=== PATIENT | male | born 1945 | race African-American/Black ===

== ENCOUNTER 2019-10-17 14:06 | Emergency (ER) | payer MEDICARE, OTHER ==
[2019-10-17 14:47] VITALS: BP 148/78
[2019-10-17] MEDS ORDERED: ACETAMINOPHEN 325 MG TABLET PO ONE ×2 (14:59→18:53)
[2019-10-17] MEDS ORDERED: ACETAMINOPHEN 650 MG SUPP.RECT PR ONE (15:00)
--- NOTE | 2019-10-17 15:02 | ER Document Report ---
ED Medical Screen (RME) - General Chief Complaint: Sore Throat Stated Complaint: SORE THROAT Time Seen by Provider: 10/17/19 14:51 Primary Care Provider: ABDIRAHMAN GALO [Primary Care Provider] - Follow up as needed Mode of Arrival: Ambulatory Information source: Patient Notes: 74-year-old male presents emergency department with complaints of sore throat unable to swallow. He reports he attempted to drink water and it came back up. Tonsillar hypertrophy noted. His at his side reports he is talking funny. Fever noted. Reports he was working at [email or web address] when he started feeling bad. Denies vomiting and diarrhea. I have greeted and performed a rapid initial assessment of this patient. A comprehensive ED assessment and evaluation of the patient, analysis of test results and completion of the medical decision making process will be conducted by additional ED providers. - Related Data Allergies/Adverse Reactions: No Known Allergies Allergy (Verified 10/17/19 14:52) Past Medical History - Past Medical History Cardiac Medical History: Reports: Hx Hypertension - Immunizations Hx Diphtheria, Pertussis, Tetanus Vaccination: No Physical Exam - Vital signs Vitals: Temp Pulse Resp BP Pulse Ox 101.3 F H 91 20 148/78 H 96 10/17/19 14:45 10/17/19 14:45 10/17/19 14:45 10/17/19 14:45 10/17/19 14:45 Course - Vital Signs Vital signs: Temp Pulse Resp BP Pulse Ox 101.3 F H 91 20 148/78 H 96 10/17/19 14:45 10/17/19 14:45 10/17/19 14:45 10/17/19 14:45 10/17/19 14:45 Doctor's Discharge - Discharge Referrals: ABDIRAHMAN GALO [Primary Care Provider] - Follow up as needed
[2019-10-17 15:55] LABS: ABSOLUTE LYMPHOCYTES (AUTO) 0.8 10^3/uL (0.5-4.7); ABSOLUTE MONOCYTES (AUTO) 0.7 10^3/uL (0.1-1.4); ABSOLUTE NEUT (AUTO) 8.2 10^3/uL (1.7-8.2); BASOPHILS % (AUTO) 0.3 % (0-2); EOSINOPHILS % (AUTO) 0.1 % (0-6); HEMATOCRIT 39.7 % (37.9-51.0); HEMOGLOBIN 13.6 g/dL (13.5-17.0); LYMPHOCYTES % (AUTO) 8.1 % (13-45); MEAN CORPUSCULAR HEMOGLOBIN 30.8 pg (27.0-33.4); MEAN CORPUSCULAR HGB CONC 34.3 g/dL (32.0-36.0); MEAN CORPUSCULAR VOLUME 90 fl (80-97); MONOCYTES % (AUTO) 7.3 % (3-13); PLATELET COUNT 127 10^3/uL (150-450); RED BLOOD COUNT 4.42 10^6/uL (4.35-5.55); RED CELL DISTRIBUTION WIDTH 13.6 % (11.5-14.0); SEGMENTED NEUTROPHILS % (AUTO) 84.2 % (42-78); TOTAL CELLS COUNTED % (AUTO) 100 %; WHITE BLOOD COUNT 9.7 10^3/uL (4.0-10.5)
[2019-10-17 16:18] LABS: ALBUMIN 4.6 g/dL (3.5-5.0); ALKALINE PHOSPHATASE 67 U/L (38-126); ANION GAP 13 (5-19); ASPARTATE AMINO TRANSFERASE 24 U/L (17-59); BILIRUBIN,DIRECT 0.4 mg/dL (0.0-0.4); BILIRUBIN,TOTAL 0.7 mg/dL (0.2-1.3); BLOOD UREA NITROGEN 23 mg/dL (7-20); CALCIUM 9.9 mg/dL (8.4-10.2); CARBON DIOXIDE 25 mmol/L (22-30); CHLORIDE 103 mmol/L (98-107); GLUCOSE 109 mg/dL (75-110); POTASSIUM 4.2 mmol/L (3.6-5.0); TOTAL PROTEIN 8.4 g/dL (6.3-8.2)
--- NOTE | 2019-10-17 18:16 | RADIOLOGY REPORT (SQ) ---
EXAM DESCRIPTION: CT SOFT TISSUE NECK WITH COMPLETED DATE/TIME: 10/17/2019 5:31 pm REASON FOR STUDY: sore throat unable to swallow COMPARISON: None. TECHNIQUE: Post IV contrasted scanning from skull base through lung apices with review of bone, soft tissue and lung windows. Reconstructed coronal and sagittal MPR images reviewed. All images stored on PACS. All CT scanners at this facility use dose modulation, iterative reconstruction, and/or weight based d osing when appropriate to reduce radiation dose to as low as reasonably achievable (ALARA). [facility]: Dose Right [facility]: CareDose [facility]: Dose Right [facility]: Teradose 4D [facility]: AudioName CONTRAST TYPE AND DOSE: contrast/concentration: Isovue 350.00 mg/ml; Total Contrast Delivered: 75.0 ml; Total Saline Delivered: 37.0 ml RENAL FUNCTION: BUN 23 creatinine 1.5 RADIATION DOSE: CT Rad equipment meets quality standard of care and radiation dose reduction techniq ues were employed. CTDIvol: 12.8 mGy. DLP: 443 mGy-cm. . LIMITATIONS: None. FINDINGS: SKULL BASE: Intact. MAJOR SALIVARY GLANDS: No solid or cystic masses. No inflammatory changes. LYMPHADENOPATHY: There are some small nonspecific submental nodes and cervical nodes. MUCOSAL MASSES OR ASYMMETRY: There is soft tissue swelling in the left side of the oropharynx. See i mage 64 series 2. No peritonsillar abscess is appreciated. LARYNX/CORDS: No abnormal findings. VASCULAR STRUCTURES: The major vessels are patent. LUNG APICES: Clear. BONES: Intact. THYROID: Thyroid gland is enlarged but fairly homogeneous. PARANASAL SINUSES: There is mild mucoperiosteal thickening in the right maxillary sinus. OTHER: No other significant finding. IMPRESSION: 1. There is mild mucosal is a thickening in the left side of the oropharynx. No obviou s peritonsillar abscess is appreciated. 2. There are some nonspecific lymph nodes as described. 3. Enlarged thyroid gland. 4. Mild right maxillary sinus disease. TECHNICAL DOCUMENTATION: JOB ID: [id number] Quality ID # [id number]: Final reports with documentation of one or more dose reduction techniques (e.g., Au tomated exposure control, adjustment of the mA and/or kV according to patient size, use of iterative reconstruction technique) 2010 [employer]- All Rights Reserved Reading location - IP/workstation name: [email or web address]
[2019-10-17] MEDS ORDERED: PENICILLIN V POTASSIUM 500 MG TABLET PO ONE (18:29)
[2019-10-17] MEDS ORDERED: METHYLPREDNISOLONE INJ 125 MG/2 ML SDV IV ONE (18:29)
== END 2019-10-17 19:21 | disposition home or self-care (01) ==
LOC: ER 14:06
DX: J02.0 Streptococcal pharyngitis (principal); R50.9 Fever, unspecified; I10 Essential (primary) hypertension
CPT/HCPCS: 99283; 96374; 36415; 87880; 85025; 80053; 70491; A9270 ×2; J2930

== ENCOUNTER → 2020-01-07 | Outpatient (CLI) | payer MEDICARE, OTHER | LOC: OD 10:16 | PROVIDERS: ATTEND Podiatrist Foot Surgery | DX: M10.072 Idiopathic gout, left ankle and foot (principal) | CPT/HCPCS: 36415; 84550 ==

== ENCOUNTER → 2020-02-18 | Outpatient (CLI) | payer MEDICARE, OTHER | LOC: OD 13:32 | PROVIDERS: ATTEND Podiatrist Foot Surgery | DX: M10.072 Idiopathic gout, left ankle and foot (principal) | CPT/HCPCS: 36415; 84550 ==